=== PATIENT | female | born 1985 | race Caucasian/White ===

== ENCOUNTER 2024-07-03 16:26 | Emergency (ER) | payer OTHER, SELFPAY ==
[2024-07-03 16:34] VITALS: BP 132/86; PULSE 68; RESP 16; TEMP 36.8; O2SAT 100
--- NOTE | 2024-07-03 16:41 | ED.GENADULT ---
HPI - General Adult General Chief complaint: Unspecified Stated complaint: shoulder and under breast pain Time Seen by Provider: 07/03/24 16:41 Source: patient Mode of arrival: ambulatory Limitations: no limitations History of Present Illness HPI narrative: [age] year old female presented for complaint of left side and chest pain intermittently for 4 days. Pain is primarily when laying down. Denies known injury. Denies associated cough, shortness of breath, palpitations, nausea, vomiting constipation, urinary complaints fevers. Patient had a virtual appointment for this complaint today and was told he could be musculoskeletal or heart related.Took ibuprofen this morning and has had no pain since, but has also not laid down. Related Data Allergies Allergy/AdvReac Type Severity Reaction Status Date / Time Sulfa (Sulfonamide Allergy Unknown Unknown Verified 07/03/24 16:39 Antibiotics) Review of Systems Review of Systems: CONSTITUTIONAL: Denies body aches, fever, chills, or sweats. ENT: Denies rhinorrhea, congestion, sore throat, or otalgia. CARDIOVASCULAR: Denies chest pain, palpitations, or edema. RESPIRATORY: Denies cough or dyspnea. GASTROINTESTINAL: Denies abdominal pain, nausea, vomiting, or diarrhea. GENITOURINARY: Denies dysuria or hematuria. SKIN: Denies rash MUSCULOSKELETAL: reports rib/side pain Denies back pain, joint pain, or myalgia. NEUROLOGIC: Denies numbness, tingling, or weakness. All systems reviewed & are unremarkable except as noted in HPI and below [facility] Comments At time of signature, I have reviewed and agree with nursing past medical, surgical, social and family history unless otherwise noted. Please see nursing chart for further information. There is no relevant family history pertinent to the presenting complaint Exam Narrative: GENERAL: Well-appearing EYES: EOMI. No redness or drainage. Conjunctivae normal. ENT: Mucous membranes pink and moist. No rhinorrhea. CHEST: No respiratory distress. Clear to auscultation. HEART: Regular rate and rhythm. No murmur appreciated. Normal peripheral pulses. ABDOMEN: Soft, nontender, nondistended, normal active bowel sounds. MUSCULOSKELETAL: No bony tenderness; nontender ribs with palpation. SKIN: Warm, dry, no rash/bruising. Capillary refill normal. Normal skin turgor. NEURO: No focal deficits. Alert and oriented x3. Gait steady. PSYCH: Normal affect. Course Course Emergency Course: Patient is aware of diagnosis, understands and agrees to treatment plan. Anticipatory guidance given. Patient agrees to follow-up as directed and is aware of reasons to seek care at the emergency department. Portions of this record may have been created with voice recognition software Level of Care: Express Care Visit Medical Decision Making MDM Narrative Medical decision making narrative: Discussed physical exam findings, EKG SB 55. VSS. Pain only with laying down and no associated sx. Advised supportive measures and signs/symptoms to go to the ER at length. Pt is appropriate for outpt treatment and f/u. Differential Diagnosis Differential Diagnosis: STEMI, AAA, PE, pneumothorax, cardiac tamponade, esophageal rupture, pneumonia, GERD, musculoskeletal pain, endocarditis, pericarditis, URI, bronchitis, anxiety Vital Signs Vital Signs: reviewed ECG Data EKG #1: Attestation: I personally reviewed and interpreted this ECG as follows: (SB 55, WV 119, QRS 96, QT / QTC 421/ 410) ECG completion date: 07/03/24 ECG completion time: 16:55 Prior ECG tracings: not available for review EKG Interpretation: normal rate and bradycardia Discharge Plan Discharge Clinical Impression: Musculoskeletal chest pain Patient Disposition: Home, Self-Care Condition: Stable Instructions: Antibiotic Form, Chest Pain (ED) Additional Instructions: Rest. Avoid pushing, pulling, lifting or anything that worsens the symptoms Tylenol 1000mg every 8 hours as needed You can alternate with ibuprofen 800mg Alternate ice/heat to the site. Lidocaine or salon pas pain patch or use pain cream like icy/hot or biofreeze. Follow up with your primary care provider as needed in 1 week Go to the ER for worsening symptoms or concerns Patient Language: Ukrainian Prescriptions: New ibuprofen 800 mg tablet 800 mg PO TID PRN (Reason: pain) Qty: 15 0RF Follow-up/Referrals: PHYSICIAN NOT ON STAFF,NONSTAFF [Primary Care Provider] -
--- NOTE | 2024-07-03 16:49 | ECG_ITS ---
Test Date: 2024-07-03 16:55:00 Measurements Intervals [place] Rate: 55 P: 7 IN: 119 QRS: 34 QRSD: 96 T: 7 QT: 421 QTc: 405 Interpretive Statements SINUS BRADYCARDIA WITH SHORT IN INTERVAL LOW QRS VOLTAGE IN PRECORDIAL LEADS [QRS DEFLECTION < 1.0 mV IN CHEST LEADS] WARNING: DATA QUALITY MAY AFFECT INTERPRETATION No previous ECG available for comparison Electronically Signed On 07-03-2024 21:43:56 HEALTHCARE SPECIALIST by Maureen Saenz M.D.
== END 2024-07-03 17:10 | disposition home or self-care (01) ==
PROVIDERS: Emergency Provider Nurse Practitioner Family
DX: R07.89 Other chest pain (principal)
CPT/HCPCS: 93005; 99213; G0463

== ENCOUNTER 2025-02-25 08:48 | Emergency (ER) | payer OTHER, SELFPAY ==
--- OUTSIDE RECORDS SUMMARY | 2025-02-25 08:53 | XMS_ITS | Clinical Summary ---
Author Organization [facility] [place] [address] [facility] lto Address [address] [place] [address] Care Team Providers Care Pin Maker Name Role Phone Unknown, Notinfile Primary Care Provider Unavail able Allergies Active Allergy Reactions Criticality Noted Date Comments Sulfacetamide Sodium Rash Medium 04/26/2015 Medications No known medications Active Problems No known active problems Social History Tobacco Use Types Packs/Day Years Used Date Smoking Tobacco: Never Assessed Comments Unknown Sex and Gender Information Value Date Recorded Sex Assigned at Not on file Legal Sex Female 2:24 PM CDT Gender Identity Not on file Sexual Orientation Not on file Obstetrics History Last Filed Vital Signs Vital Sign Reading Time Taken Comments Blood Pressure 120/88 12/10/2023 6:28 PM CDT Pulse 68 12/10/2023 6:28 PM CDT Temperature 37.1 C (98.7 F) 12/10/2023 6:28 PM CDT Respiratory Rate 16 12/10/2023 6:28 PM CDT Oxygen Saturation 96% 12/10/2023 6:28 PM CDT Inhaled Oxygen Concentration - - Weight 84.5 kg (186 lb 3.2 oz) 12/10/2023 6:28 P M CDT Height 161.8 cm (5' 3.7) 12/10/2023 6:28 PM CDT Body Mass Index 32.26 12/10/2023 6:28 PM CDT Plan of Treatment Health Maintenance Due Date Last Done Comments Cervical Cancer Screening 1985 Depression Screening 1985 Hepatitis C Screening 1985 Varicella Vaccines (1 of 2 - 13+ 2-dose series) 1998 Hepatitis B Screening 2003 Regular Well Visit/Exam 18-64 2003 HPV Vaccines (1 - 3-dose SCD M series) 2012 Influenza Vaccine (#1) 2025 DTaP/Tdap/Td Vaccine (3 - Td or Tdap) 08/01/2029 08/01/2019, 04/28/2015 Pneumococcal vaccine <65 Aged Out No longer eligible based on patient's age to complete this topic Insurance [facility] [id number] Care Teams Pin Maker Relationship Specialty Start Date End Date Unknown, Notinfile PCP - General 12/10/23
--- OUTSIDE RECORDS SUMMARY | 2025-02-25 08:53 | XMS_ITS | Clinical Summary ---
Author Organization [facility] Address [address] [place] [address] Phone Care Team Providers Care Severity Of Illness Coordinator Name Role Phone Emir Devlin MD Primary Care Provider [phone] Allergies Active Allergy Reactions Criticality Noted Date Comments Sulfacetamide Sodium Rash Medium 04/26/2015 Medications No known medications Active Problems Problem Noted Date Diagnosed Date Tobacco use 03/02/2017 Resolved Problems Problem Noted Date Diagnosed Date Resolved Date Encounter for induction of labor 10/25/2019 10/25/2019 (spontaneous vaginal delivery) 10/25/2019 12/07/2019 Supervision of other normal , antepartum 03/15/2019 12/07/2019 Rh negative state in antepartum period 02/15/2019 12/07/2019 Vaginal discharge during pre gnancy, third trimester 12/07/2019 Encounters Date Type Department Care Team Description 12/12/2024 External Device Data [facility]CTION Provider, Abstract 12/05/2024 External Device Data [facility] Provider, Abstract from Last 3 Months Immunizations Immunization Administration Dates Next Due (ADACEL/BOOSTRIX)(10 YR UP) TDAP VACCINE, 0.5ML, IM 08/01/2019,04/28/2015 Family History Medical History Relation Name Comments Hypertension Father Stroke Father Cancer Paternal Grandfather Breast Cancer Neg Hx Colon Cancer Neg Hx Ovarian Cancer Neg Hx Relation Name Status Comments Brother Alive Father Alive Maternal Grandfather Maternal Grandmother Mother Alive Paternal Grandfather lymphom a Paternal Grandmother Sister Alive Son 1 Alive Son 2 Alive Son 3 Jamir Alive Social History Tobacco Use Types Packs/Day Years Used Date Smoking Tobacco: Former Cigarettes 0.3 10 2 002 - 2012 Smokeless Tobacco: Never Tobacco Cessation:Counseling Given: Not Answered Alcohol Use Standard Drinks/Week Comments Yes 0 (1 standard drink = 0.6 oz pur e alcohol) socially Feeling Safe Answer Date Recorded Are you in a relationship wi th someone who hurts you emotionally and/or physically? No 09/06/2023 Comments No Sex and Gender Information Value Date Recorded Sex Assigned at Not on file Legal Sex Female 12:28 PM CDT Gender Identity Not on file Sexual Orientation Not on file Last Filed Vital Signs Vital Sign Reading Time Taken Comments Blood Pressure 118/80 09/21/2023 10:19 AM CDT Pulse 57 09/06/2023 10:50 AM CDT Temperature 36.1 C (96.9 F) 09/06/2023 10:50 AM CDT Respiratory Rate 17 09/06/2023 10:50 AM CDT Oxygen Saturation 97% 09/06/2023 10:50 AM CDT Inhaled Oxygen Concentration - - Weight 84.6 kg (186 lb 6.4 oz) 09/21/2023 10:19 AM CDT Height 165.1 cm (5' 5) 09/21/2023 10:19 AM CDT Body Mass Index 31.02 09/21/2023 10:19 AM CDT Plan of Treatment Health Maintenance Due Date Last Done Comments HEPATITIS B VACCINES (1 of 3 - 19+ 3-dose series) 2004 HPV VACCINES (1 - 3-dose SCD M series) 2012 INFLUENZA VACCINE (#1) 2025 PAP SMEAR 05/26/2026 05/26/2023, 02/20, 01/09/2019, Additional history exists CERVICAL CANCER SCREENING 05/26/2028 HPV/Cotest (21-29) 05/26/2028 05/26/2023, 0 03/12/2022, 01/09/2019, Additional history exists HPV/Cotest (30-65) 05/26/2028 05/26/2023, 0 03/12/2022, 01/09/2019, Additional history exists DTAP/TDAP/TD VACCINES (3 - T d or Tdap) 08/01/2029 08/01/2019, 04/28/2015 Medical Devices Explanted Type Area Rejected Items Clerk Device Identifier Shelf Expiration Date Model / Serial / Lot Intrauterine Device Explanted:Qty: 1 on 09/06/2023 by Arminda Buenrostro MD at [facility] N/A: Vagina Procedures Procedure Name Priority Date/Time Associated Diagnosis Comments CERV/VAG CYTO AGE BASED SCREEN PAP Routine 05/26/2023 2:03 PM BRAND DEVELOPMENT MANAGER Screening for cervical cancer from Last 3 Months or Most Recently Relevant to Health Maintenance Results * CERV/VAG CYTO AGE BASED SCREEN PAP (05/26/2023 2:03 PM BRAND DEVELOPMENT MANAGER) COMMENT (PAP): [facility] [place] Comment: This order for age-based cervical cancer and STI screening follows ACOG guidelines(PB 168, 140, DMD510). See individual assays for performing site location. CLINICAL INFORMATION [facility] [place] Comment:None given LAST MENSTRUAL PERIOD [facility] [place] Comment:NONE GIVEN PREV PAP: [facility] [place] Comment:NONE GIVEN PREV BX: [facility] [place] Comment:NONE GIVEN SOURCE [facility] [place] Comment:Endocervix ADEQUACY: [facility] [place] Comment: Satisfactory for evaluation. Endocervical/transformation zone component present. Age and/or menstrual status not provided PAP INTERP [facility] [place] Comment: Cytology Results: Negative for intraepithelial lesion or malignancy. COMMENT (PAP TEST) [facility] [place] Comment: This Pap test has been evaluated with computer assisted technology. MITER CUTTER: Douglas Richardson Comment: YQ, CT(ASCP) CT screening location: [place] [address] [place] [address] EXPLANATORY NOTE [facility] [place] Comment: EXPLANATORY NOTE: The Pap is a screening test for cervical cancer. It is not a diagnostic test and is subject to false negative and false positive results. It is most reliable when a satisfactory sample, regularly obtained, is submitted with relevant clinical findings and history, and when the Pap result is evaluated along with historic and current clinical information. HPV E6/E7 Not Detected Not Detected [facility] [place] Comment: Methodology: Sleeve Setter-Mediated Amplification This assay detects E6/E7 viral messenger RNA (mRNA) from 14 high-risk HPV types (16,18,31,33,35,39,45,51,52,56,58,59,66,68). Cervical sources are required for HPV testing. If a vaginal source from a patient who has had a total hysterectomy with removal of cervix was submitted, please contact the testing laboratory for alternative testing options. For additional information, please refer to http://education.CardiOx/faq/KHO303l2 (This link if provided for information/ educational purposes only.) Test Performed at: [facility] [address] [address] [facility] [address] Hasmukh MONTERO Genital SWAB OF ENDOCERVIX / Unknown 05/26/2023 2:03 PM BRAND DEVELOPMENT MANAGER 05/27/2023 3:05 AM BRAND DEVELOPMENT MANAGER us Itzel Blank NP PATHOLOGY/CYTOLOGY ORDERABLE S Final Result [facility] [phone] [facility] [address] [place] [address] from Last 3 Months or Most Recently Relevant to Health Maintenance Insurance [facility] [employer] [facility] Advance Directives For more information, please contact: [phone] * Full Code (Latest Code Status on File) Date Activated Date Inactivated Comments 10/25/2019 4:56 AM 10/27/2019 2:24 PM * Full Code Date Activated Date Inactivated Comments 10/18/2019 12:19 AM 10/18/2019 5:01 AM Care Teams Severity Of Illness Coordinator Relationship Specialty Start Date End Date Emir Devlin MD PCP - General Internal Medicine 10/30/16
[2025-02-25 08:54] VITALS: BP 126/75; PULSE 65; RESP 16; TEMP 36.3; O2SAT 100
--- NOTE | 2025-02-25 09:34 | ED.EXTPRO ---
HPI - Extremity Problem General Chief complaint: Extremity Problem,Nontraumatic Stated complaint: left pointer finger Time Seen by Provider: 02/25/25 09:20 Source: patient and RN notes reviewed Mode of arrival: ambulatory Limitations: no limitations History of Present Illness HPI Narrative: 39-year-old female presents Express Care complaining of pain and swelling to the tip of her left index finger for 1 week. Patient says she has dry skin and hand nails to her finger with denies picking on. Patient noticed increased redness and swelling that has gotten worse over the last week. Patient denies any drainage, fevers, bites, chills, nausea, vomiting, or any other symptoms. Patient is not taking [id number] to help with symptoms. Related Data Allergies Allergy/AdvReac Type Severity Reaction Status Date / Time Sulfa (Sulfonamide Allergy Unknown Unknown Verified 02/25/25 08:59 Antibiotics) Review of Systems Review of Systems: CONSTITUTIONAL: Denies fever, chills, or sweats. EYES: Denies visual changes, redness, or discharge. ENT: Denies rhinorrhea, congestion, sore throat, or otalgia. CARDIOVASCULAR: Denies chest pain, palpitations, or edema. RESPIRATORY: Denies cough or dyspnea. GASTROINTESTINAL: Denies abdominal pain, nausea, vomiting, or diarrhea. GENITOURINARY: Denies dysuria or hematuria. SKIN: Denies rash or itching. Positive redness and swelling. MUSCULOSKELETAL: Denies back pain, joint pain, or myalgia. NEUROLOGIC: Denies headache, numbness, or weakness. PSYCHIATRIC: Denies anxiety or depression. All other systems reviewed are negative, except as documented in HPI. [facility] Comments At the time of my signature, I reviewed and agree with the nursing past medical, surgical, social, and family history. There is no relevant family history pertinent to the patient complaint. Exam Narrative: GENERAL: This is a well-nourished, well-developed adult, in no apparent distress. They are non ill-appearing, nontoxic appearing. HEAD: normocephalic, atraumatic. EYES: Sclera clear/white. Conjunctiva normal. Vision is grossly intact. Extraocular movements intact EARS: External ears normal, Hearing grossly intact. NOSE: External nose normal THROAT: Mucous membranes moist, NECK: Neck supple, CARDIOVASCULAR: Regular rate and rhythm RESPIRATORY Respiratory rate normal, respiratory effort nonlabored, no respiratory distress SKIN: warm, Dry, intact with no suspicious lesions or rash, good texture and turgor. NEURO: awake, alert, and oriented to person, place and time. There were no obvious focal neurologic abnormalities. EXTREMITIES: Left index finger: Erythematous to the tip of the left index finger extending to the DIP joint. Normal range of motion of finger. Capillary refill less than 2 seconds. Nail plate and better intact. Hang nail present. No exudate, no area of fluctuance, no induration. Mild tenderness to palpation to the tip of the finger. Neurovascular status intact. Course Course Emergency Course: Portions of this record may have been created with voice recognition software Level of Care: Express Care Visit Vital Signs Vital signs: Vital Signs Temperature 97.3 F L 02/25/25 08:54 Pulse Rate 65 02/25/25 08:54 Respiratory Rate 16 02/25/25 08:54 Blood Pressure 126/75 02/25/25 08:54 Pulse Oximetry 100 02/25/25 08:54 Oxygen Delivery Room Air 02/25/25 08:54 Temperature 97.3 F L 02/25/25 08:54 Pulse Rate 65 02/25/25 08:54 Respiratory Rate 16 02/25/25 08:54 Blood Pressure 126/75 02/25/25 08:54 Pulse Oximetry 100 02/25/25 08:54 Oxygen Delivery Room Air 02/25/25 08:54 Reviewed MDM - Extremity (Nontraumatic) MDM Narrative Medical decision making narrative: Patient has paronychia. No evidence of abscess formation. Will prescribe cephalexin and mupirocin ointment. Discussed physical exam findings. Advised supportive measures and signs/symptoms to go to the ER. Pt is appropriate for outpt treatment and f/u. Differential Diagnosis Differential diagnosis: Likely cellulitis and other (Paronychia,. Paronychia abscess) Critical Care Time Critical Care Time Critical Care Time: No Discharge Plan Discharge Clinical Impression: Paronychia Patient Disposition: Home Condition: Stable Instructions: Antibiotic Form, Paronychia (ED) Additional Instructions: Take the cephalexin as directed. Soak your finger and warm soapy water for 10-15 minutes then apply mupirocin ointment on it 3 times a day. Follow-up with PCP in 3-5 days. He developed worsening redness, swelling, pain, fevers, drainage, or any other concerns please go to the ER immediately. Patient Language: Portuguese Prescriptions: New mupirocin [Centany] 2 % ointment 1 applic topical TID 7 Days Qty: 22 0RF cephalexin 500 mg capsule 500 mg PO Q6H 7 Days Qty: 28 0RF Follow-up/Referrals: UNKNOWN,DOCTOR [Primary Care Provider] Time of Disposition: 09:33
== END 2025-02-25 09:40 | disposition home or self-care (01) ==
DX: L03.012 Cellulitis of left finger (principal)
CPT/HCPCS: 99213; G0463